=== PATIENT | female | born 1940 | race Caucasian/White ===

== ENCOUNTER → 2023-03-22 10:22 | Outpatient (REF) | payer MEDICARE, OTHER, SELFPAY | LOC: DHCBC HW 10:22 | PROVIDERS: ATTENDING PHYSICIAN Internal Medicine Cardiovascular Disease; FAMILY PHYSICIAN Family Medicine | DX: I35.0 Nonrheumatic aortic (valve) stenosis (principal) | CPT/HCPCS: 93306 ==

== ENCOUNTER → 2023-05-21 06:41 | Outpatient (REF) | payer MEDICARE, OTHER, SELFPAY ==
[2023-05-21 08:50] LABS: % Basophils 0.7 % (0-2); % Eosinophils 2.6 % (0-6); % Immature Granulocytes 0.3 % (0-0.5); % Lymphocytes 26.5 % (20.5-51.1); % Monocytes 12.1 % (1.7-9.3); % Neutrophils 57.8 % (42.2-75.2); Absolute Basophils 0.1 10^3/uL (0-0.2); Absolute Eosinophils 0.2 10^3/uL (0-0.7); Absolute Monocytes 0.9 10^3/uL (0.1-0.6); Absolute Neutrophils 4.3 10^3/uL (1.4-6.5); Mean Corp Hgb Conc. 32.5 g/dL (33.0-37.0); Mean Corpuscular Hgb 27.8 pg (27.0-31.0); Mean Corpuscular Volume 85.5 fL (81.0-99.0); Mean Platelet Volume 9.3 fL (7.4-10.4); Nucleated Red Blood Cells % 0 %; Platelet Count 264 10^3/uL (130-400); Red Blood Cell Count 4.68 10^6/uL (4.20-5.40); Red Cell Dist. Width 13.7 % (11.5-14.5); White Blood Cell Count 7.4 10^3/uL (4.8-10.8)
[2023-05-21 09:00] LABS: INR 0.97; PT 12.7 Sec (11.4-14.6)
[2023-05-21 09:12] LABS: ALT (SGPT) 21 U/L (0-35); AST (SGOT) 31 U/L (14-36); Albumin 4.1 g/dl (3.5-5.0); Alkaline Phosphatase 87 U/L (38-126); Blood Urea Nitrogen 23 mg/dl (7-17); Calcium 9.3 mg/dl (8.4-10.2); Carbon Dioxide 29 mmol/L (22-30); Chloride 103 mmol/L (98-107); Glucose 93 mg/dl (70-99); Potassium 3.8 mmol/L (3.5-5.1); Sodium 137 mmol/L (135-145); Total Bilirubin 0.6 mg/dl (0.2-1.3); eGFR > 60.00
[2023-05-21 09:38] LABS: Hepatitis B Surface Antigen Negative (Negative)
[2023-05-21 09:43] LABS: AFP Male/Tumor Marker 2.55 ng/ml
[2023-05-21 09:56] LABS: Hepatitis B Core Ab, Total Negative (Negative); Hepatitis C Antibody Negative (Negative)
[2023-05-21 14:50] LABS: Hepatitis A Antibody, Total Positive (Negative)
== END ==
LOC: HWLAB 06:41
PROVIDERS: ATTENDING PHYSICIAN Internal Medicine Gastroenterology; FAMILY PHYSICIAN Family Medicine
DX: K74.60 Unspecified cirrhosis of liver (principal); K76.9 Liver disease, unspecified
CPT/HCPCS: 36415; 80053; 82105; 85025; 85610; 86704; 86708; 86803; 87340

== ENCOUNTER → 2023-06-14 13:18 | Outpatient (REF) | payer MEDICARE, OTHER, SELFPAY | LOC: PAVMRI 13:18 | PROVIDERS: ATTENDING PHYSICIAN Internal Medicine Gastroenterology; FAMILY PHYSICIAN Family Medicine | DX: K74.60 Unspecified cirrhosis of liver (principal); K76.9 Liver disease, unspecified | CPT/HCPCS: 74183; A9581 ==

== ENCOUNTER → 2023-07-15 10:05 | Outpatient (REF) | payer MEDICARE, OTHER, SELFPAY ==
[2023-07-15 12:28] LABS: Blood Urea Nitrogen 19 mg/dl (7-17); Calcium 9.5 mg/dl (8.4-10.2); Carbon Dioxide 30 mmol/L (22-30); Chloride 104 mmol/L (98-107); Glucose 90 mg/dl (70-99); Phosphorus 3.9 mg/dl (2.5-4.5); Potassium 3.8 mmol/L (3.5-5.1); Sodium 142 mmol/L (135-145); eGFR > 60.00
== END ==
LOC: HWLAB 10:05
PROVIDERS: ATTENDING PHYSICIAN Internal Medicine Cardiovascular Disease; FAMILY PHYSICIAN Family Medicine
DX: I10 Essential (primary) hypertension (principal)
CPT/HCPCS: 36415; 80069

== ENCOUNTER → 2024-01-29 13:12 | Outpatient (REF) | payer MEDICARE, OTHER, SELFPAY | LOC: HWRAD 13:12 | PROVIDERS: ATTENDING PHYSICIAN Specialist; FAMILY PHYSICIAN Family Medicine | DX: M25.511 Pain in right shoulder (principal) | CPT/HCPCS: 73200 ==

== ENCOUNTER 2024-03-13 06:00 | Day surgery (SDC) | payer MEDICARE, OTHER, SELFPAY ==
[2024-03-03 12:21] LABS: Hematocrit 41.5 % (37.0-47.0); Hemoglobin 13.4 g/dL (12.0-16.0); Mean Corp Hgb Conc. 32.3 g/dL (33.0-37.0); Mean Corpuscular Hgb 27.9 pg (27.0-31.0); Mean Corpuscular Volume 86.5 fL (81.0-99.0); Mean Platelet Volume 9.8 fL (7.4-10.4); Platelet Count 233 10^3/uL (130-400); Red Cell Dist. Width 13.2 % (11.5-14.5); White Blood Cell Count 7.8 10^3/uL (4.8-10.8)
[2024-03-03 12:46] LABS: ALT (SGPT) 24 U/L (0-35); AST (SGOT) 36 U/L (14-36); Albumin 4.3 g/dl (3.5-5.0); Alkaline Phosphatase 90 U/L (38-126); Blood Urea Nitrogen 15 mg/dl (7-17); Calcium 9.5 mg/dl (8.4-10.2); Carbon Dioxide 32 mmol/L (22-30); Chloride 99 mmol/L (98-107); Glucose 83 mg/dl (70-99); Potassium 4.4 mmol/L (3.5-5.1); Sodium 138 mmol/L (135-145); Total Bilirubin 0.5 mg/dl (0.2-1.3); Total Protein 7.3 g/dl (6.3-8.2); eGFR > 60.00
[2024-03-03 14:25] LABS: Glycohemoglobin (HgbA1c) 5.7 % (4.0-5.6)
[2024-03-03 14:41] VITALS: BMI 23.1
[2024-03-05 13:20] VITALS: BMI 23.1
[2024-03-13] VITALS (10 sets, daily range): BP systolic 145–182; BP diastolic 65–82; BMI 23.1
[2024-03-13] MEDS: TYLENOL 1000 MG PO (06:48)
[2024-03-13] MEDS: MOBIC 15 MG PO (06:48)
[2024-03-13] MEDS: NORMOSOL-R/PLASMALYTE-A 1000 IV (06:48)
--- NOTE | 2024-03-13 10:56 | W.DS.TRANS ---
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
-
Discharge Instructions:
Sleep Apnea Risk Low
Discharge Diagnosis/Procedures R Reverse TSA 03/13/24
Diet As tolerated
Activity With Walker
Driving Restrictions No driving
Instructions:
Stand-Alone Forms: SDS Total Shoulder D/C Inst.
Changes to Home Medications: Yes
Discharge Medications:
DC Medications w/original date entered in [facility]
apple cider vinegar 600 mg capsule 1,250 mg PO DAILY Supplement 12/15/15
levothyroxine 125 mcg tablet 125 mcg PO SUMOTUTHFRSA Thyroid 12/15/15
ezetimibe 10 mg tablet (Zetia) 10 mg PO HS High cholesterol 10/04/21
propranolol 60 mg capsule,24 hr,extended release 60 mg PO DAILY Blood pressure 10/04/21
rosuvastatin 20 mg tablet 20 mg PO MOWEFR High cholesterol 10/04/21
rosuvastatin 40 mg tablet 40 mg PO SUTUTHSA High cholesterol 10/04/21
multivitamin 1 tab PO DAILY Supplement 02/08/22
omega 3-oot-bhp-fish oil 1,000 mg (120 mg-180 mg) capsule (Fish Oil) 2 cap PO DAILY Supplement 02/08/22
aspirin 81 mg tablet 81 mg PO DAILY Blood Clot Prevention/Tx 12/06/22
coenzyme Q10 100 mg capsule (CoQ-10) 100 mg PO DAILY Supplement 02/21/23
dexamethasone 4 mg tablet 4 mg PO BID inflammation #6 tabs 03/03/24
gabapentin 300 mg capsule 300 mg PO HS sleep/pain #10 caps 03/03/24
mupirocin 2 % topical ointment 1 applic topical BID infection prevention #1 tube 03/03/24
tramadol 50 mg tablet 50 mg PO Q6H PRN 1 tab moderate pain, 2 if severe #30 tabs 03/03/24
acetaminophen 325 mg tablet (Tylenol) 650 mg (2 x 325 mg) PO QID #1 tab 03/13/24
aspirin 325 mg tablet 325 mg PO DAILY blood clot prevention #1 tab 03/13/24
docusate sodium 100 mg capsule (Colace) 100 mg PO BID stool softner #1 cap 03/13/24
losartan 25 mg tablet 25 mg PO DAILY 03/13/24
magnesium hydroxide 400 mg/5 mL oral suspension (Milk of Magnesia) 30 ml PO HS PRN Constipation #1 mL 03/13/24
sennosides 8.6 mg tablet (Senokot) 17.2 mg (2 x 8.6 mg) PO BID laxative #2 tabs 03/13/24
Home Medication Changes
gabapentin 300 mg capsule 300 mg PO HS sleep/pain #10 caps 03/03/24
mupirocin 2 % topical ointment 1 applic topical BID infection prevention #1 tube 03/03/24
tramadol 50 mg tablet 50 mg PO Q6H PRN 1 tab moderate pain, 2 if severe #30 tabs 03/03/24
acetaminophen 325 mg tablet (Tylenol) 650 mg (2 x 325 mg) PO QID #1 tab 03/13/24
aspirin 325 mg tablet 325 mg PO DAILY blood clot prevention #1 tab 03/13/24
docusate sodium 100 mg capsule (Colace) 100 mg PO BID stool softner #1 cap 03/13/24
losartan 25 mg tablet 25 mg PO DAILY 03/13/24
magnesium hydroxide 400 mg/5 mL oral suspension (Milk of Magnesia) 30 ml PO HS PRN Constipation #1 mL 03/13/24
sennosides 8.6 mg tablet (Senokot) 17.2 mg (2 x 8.6 mg) PO BID laxative #2 tabs 03/13/24
Pending Results: No
[2024-03-13] MEDS: ANCEF 5 IV (11:44)
== END 2024-03-13 12:35 | disposition home or self-care (01) ==
LOC: SDS 06:00
PROVIDERS: ATTENDING PHYSICIAN Specialist; FAMILY PHYSICIAN Family Medicine; OTHER PHYSICIAN Physician Assistant Medical; REFERRING PHYSICIAN Internal Medicine Cardiovascular Disease
DX: M19.011 Primary osteoarthritis, right shoulder (principal); M81.8 Other osteoporosis without current pathological fracture
CPT/HCPCS: 23472; 36415; 73020; 80053; 83036; 85027; 87070; C1713; C1776

== ENCOUNTER → 2024-05-29 08:22 | Outpatient (REF) | payer MEDICARE, OTHER, SELFPAY ==
[2024-05-29 11:09] LABS: Glycohemoglobin (HgbA1c) 5.5 % (4.0-5.6)
[2024-05-29 12:41] LABS: HDL Cholesterol 95 mg/dl; LDL Cholesterol, Calculated 80 mg/dl; Total Cholesterol 193 mg/dl (50-199); Triglyceride 91 mg/dl (10-149); Very Low Density Lipoprotein 18 mg/dl (0-30)
== END ==
LOC: HWLAB 08:22
PROVIDERS: ATTENDING PHYSICIAN Internal Medicine Cardiovascular Disease; FAMILY PHYSICIAN Family Medicine
DX: R73.01 Impaired fasting glucose (principal); I25.10 Atherosclerotic heart disease of native coronary artery without angina pectoris
CPT/HCPCS: 36415; 80061; 83036

== ENCOUNTER → 2024-06-07 13:43 | Outpatient (REF) | payer MEDICARE, OTHER, SELFPAY | LOC: PAVMRI 13:43 | PROVIDERS: ATTENDING PHYSICIAN Specialist; FAMILY PHYSICIAN Family Medicine | DX: M54.12 Radiculopathy, cervical region (principal) | CPT/HCPCS: 72141 ==

== ENCOUNTER → 2024-12-07 07:35 | Outpatient (REF) | payer MEDICARE, OTHER, SELFPAY ==
[2024-12-07 09:43] LABS: Hematocrit 39.3 % (37.0-47.0); Hemoglobin 12.3 g/dL (12.0-16.0); Mean Corp Hgb Conc. 31.3 g/dL (33.0-37.0); Mean Corpuscular Volume 86.9 fL (81.0-99.0); Nucleated Red Blood Cells % 0 %; Platelet Count 308 10^3/uL (130-400); Red Cell Dist. Width 13.5 % (11.5-14.5)
[2024-12-07 10:04] LABS: ALT (SGPT) 19 U/L (0-35); AST (SGOT) 26 U/L (14-36); Albumin 4.2 g/dl (3.5-5.0); Alkaline Phosphatase 71 U/L (38-126); Blood Urea Nitrogen 19 mg/dl (7-17); Calcium 9.6 mg/dl (8.4-10.2); Carbon Dioxide 29 mmol/L (22-30); Chloride 105 mmol/L (98-107); Glucose 85 mg/dl (70-99); Potassium 3.5 mmol/L (3.5-5.1); Sodium 138 mmol/L (135-145); Total Protein 7.4 g/dl (6.3-8.2); eGFR > 60.00
[2024-12-07 10:08] LABS: C-Reactive Protein < 5.00 mg/L (0.0-10.00)
[2024-12-07 11:27] LABS: Rheumatoid Agglutinin Less Than 10 IU (<10 IU)
[2024-12-07 19:27] LABS: Hepatitis B Surface Antigen Negative (Negative)
[2024-12-07 19:45] LABS: Hepatitis C Antibody Negative (Negative)
[2024-12-08 22:07] LABS: HLA-B27 Negative (Negative)
[2024-12-09 01:43] LABS: CCP Antibody IgG/IgA 5 Units (0-19)
== END ==
LOC: HWRAD 07:35
PROVIDERS: ATTENDING PHYSICIAN Student in an Organized Health Care Education/Training Program; FAMILY PHYSICIAN Family Medicine
DX: I25.10 Atherosclerotic heart disease of native coronary artery without angina pectoris (principal); M45.2 Ankylosing spondylitis of cervical region; M54.9 Dorsalgia, unspecified; M79.641 Pain in right hand; M79.642 Pain in left hand; Z11.1 Encounter for screening for respiratory tuberculosis; Z11.59 Encounter for screening for other viral diseases
CPT/HCPCS: 36415; 72070; 72100; 72202; 73120; 80053; 85025; 85652; 86140; 86200; 86430; 86480; 86704; 86706; 86803; 86812; 87340